=== PATIENT | female | born 1990 | race Caucasian/White ===

== ENCOUNTER 2022-01-02 18:11 | Inpatient (IN) ==
[2022-01-02 15:43] LABS: Basophils % 0.3 %; Eosinophils # 0.1 K/mcL (0.0-0.6); Hematocrit 34.1 % (35.3-44.9); Hemoglobin 11.3 g/dL (11.5-15.4); Immature Granulocytes % 0.1 % (0-4); Lymphocytes # 1.7 K/mcL (0.6-4.6); Lymphocytes % 25.8 %; Mean Corpuscular HGB Conc 33.1 g/dL (31.6-35.5); Mean Corpuscular Hemoglobin 27.9 pg (28.0-33.3); Mean Corpuscular Volume 84.2 fL (83.0-100.0); Mean Platelet Volume 12.1 fL (9.4-12.4); Monocytes # 0.4 K/mcL (0.0-1.3); Monocytes % 6.3 %; Neutrophils # 4.5 K/mcL (1.6-8.9); Platelet Count 254 K/mcL (140-400); Red Blood Count 4.05 M/mcL (3.82-4.97); Red Cell Distribution Width 14.3 % (11.5-14.5); Segmented Neutrophils % 66.5 %; White Blood Count 6.7 K/mcL (4.3-11.1)
[2022-01-02 15:46] LABS: Alanine Aminotransferase 8 Units/L (7-52); Aspartate Amino Transferase 15 Units/L (13-39); BUN/Creatinine Ratio 14 (6-26); Blood Urea Nitrogen 9 mg/dL (6-20); Lactate Dehydrogenase 143 Units/L (140-271); eGFR For African Americans > 60 (> 60); eGFR For Non-African Americans > 60 (> 60)
[2022-01-02 15:57] LABS: Bacteria,Urine Few per hpf (None-Few); Bilirubin,Urine Negative (Negative); Blood,Urine Negative (Negative); Clarity,Urine Turbid (Clear); Color,Urine Yellow (Yellow); Glucose,Urine (UA) Normal (Normal); Hyaline Casts,Urine Few per lpf (None Seen); Ketones,Urine Negative (Negative); Leukocyte Esterase,Urine Large (Negative); Mucus,Urine Many per lpf (None-Few); Nitrite,Urine Negative (Negative); PH,Urine 5.5 pH Units (5.0-8.0); Protein,Urine 100 mg/dL (Neg-Trace); Renal Epithelial Cells,Urine Few per hpf (None-Few); Specific Gravity,Urine > 1.030 (1.010-1.025); Squamous Epithelial Cell,Urine Moderate per hpf (None-Few); Transitional Epi Cells,Urine Few per hpf (None-Few); Urobilinogen,Urine Normal (Normal)
[2022-01-02 16:22] LABS: Creatinine,Urine 349 mg/dL; Protein/Creatinine Ratio,Urine 0.22 mg/mg (0.00-0.20)
[2022-01-02] MEDS ORDERED: *HR* Nalbuphine 10 MG/ML AMPUL IV PRN (18:18)
[2022-01-02] MEDS ORDERED: Azithromycin 500 MG in 0.9 % Sodium Chloride 250 ML IVPB PRN (18:18)
[2022-01-02] MEDS ORDERED: Naloxone 0.4 MG/ML INJ IVP PRN (18:18)
[2022-01-02] MEDS ORDERED: Metoclopramide 10 MG/2 ML VIAL IVP PRN (18:18)
[2022-01-02] MEDS ORDERED: Famotidine 20 MG/2 ML VIAL IVP PRN (18:18)
[2022-01-02] MEDS ORDERED: Ringers Solution, Lactated 1,000 ML ONE (18:22)
[2022-01-02] MEDS ORDERED: miSOPROStoL 25 MCG TABLET PO SCH (18:30)
[2022-01-02] MEDS ORDERED: Penicillin G Potassium 5,000,000 UNIT in 0.9 % Sodium Chloride Mini Bag 100 ML IVPB ONE (18:30)
[2022-01-02] MEDS: Magnesium Sulf 20 gm/SW 500mL 20 GM/500 ML IV.SOLN IVC SCH (19:02)
[2022-01-02 19:08] LABS: Amphetamine Screen,Urine Negative ng/mL (Cutoff=1000); Barbiturate Screen,Urine Negative ng/mL (Cutoff=200); Benzodiazepines Screen,Urine Negative ng/mL (Cutoff=200); Cannabinoid Screen,Urine Positive ng/mL (Cutoff = 50); Cocaine Screen,Urine Negative ng/mL (Cutoff= 300); Opiate Screen,Urine Negative ng/mL (Cutoff=300); Phencyclidine Screen,Urine Negative ng/mL (Cutoff=25)
[2022-01-02] MEDS ORDERED: *HR* Labetalol 20 MG/4 ML SYRINGE IVP ONE ×2 (19:17→20:00)
[2022-01-02 19:23] LABS: Influenza A PCR Negative (Negative); Influenza B PCR Negative (Negative); Resp. Syncytial Virus PCR Negative (Negative)
[2022-01-02 19:25] LABS: SARS-CoV-2 by PCR (In House) Negative (Negative)
[2022-01-02] MEDS ORDERED: EPHEDrine 50 MG/ML VIAL IVP PRN (20:55)
[2022-01-02] MEDS ORDERED: *HR* FentaNYL (PF) 100 MCG/2 ML VIAL EP ONE (20:55)
[2022-01-02] MEDS ORDERED: Ropivacaine/PF 0.2% 20 ML VIAL EP ONE (20:55)
[2022-01-02] MEDS ORDERED: Epidural Premix (fent/bupiv) 110 ML EP ONE (20:56)
[2022-01-02] MEDS ORDERED: Epidural Premix (fent/bupiv) 110 ML EP SCH (21:00)
[2022-01-02] MEDS ORDERED: Ringers Solution, Lactated 1,000 ML IVC SCH (21:30)
[2022-01-02] MEDS: Ondansetron 4 MG/2 ML VIAL IVP PRN (21:50)
[2022-01-02] MEDS ORDERED: Calcium Gluconate 1,000 MG/10 ML VIAL IVP PRN (22:04)
[2022-01-02] MEDS: Penicillin G Potassium 2,500,000 UNIT/105 ML MLS IVPB SCH (23:02)
[2022-01-03] MEDS ORDERED: Oxytocin 20 units/ LR 1000 mL 20 UNIT/1,000 ML BAG IVC SCH ×2 (01:00→10:34)
[2022-01-03] MEDS: Penicillin G Potassium 2,500,000 UNIT/105 ML MLS IVPB SCH ×2 (02:58→06:58)
[2022-01-03] MEDS: Magnesium Sulf 20 gm/SW 500mL 20 GM/500 ML IV.SOLN IVC SCH ×3 (04:57→21:37)
[2022-01-03] MEDS: Ondansetron 4 MG/2 ML VIAL IVP PRN (05:20)
[2022-01-03] MEDS ORDERED: Ropivacaine/PF 0.2% 20 ML VIAL ONE (08:30)
[2022-01-03] MEDS ORDERED: 0.9 % Sodium Chloride 500 ML ONE (08:35)
[2022-01-03] MEDS ORDERED: Lidocaine/EPI 1:200k 2% PF 20 ML VIAL ONE (09:02)
[2022-01-03] MEDS ORDERED: EPHEDrine 50 MG/ML VIAL ONE (09:26)
[2022-01-03] MEDS ORDERED: Ondansetron 4 MG/2 ML VIAL ONE (09:26)
[2022-01-03] MEDS ORDERED: *HR* Morphine Sulfate/PF 10 MG/10 ML AMPUL ONE (09:29)
[2022-01-03] MEDS ORDERED: Ketorolac 30 MG/ML VIAL ONE (09:31)
[2022-01-03] MEDS ORDERED: Acetaminophen IV 1,000 MG/100 ML BAG IVPB ONE (09:31)
[2022-01-03] MEDS ORDERED: Acetaminophen IV 1,000 MG/100 ML BAG IVPB PRN (09:49)
[2022-01-03] MEDS ORDERED: Promethazine 6.25 MG in Water for inj. (sterile) 20 ML IVPB PRN (09:49)
[2022-01-03] MEDS ORDERED: *HR* OxyCODONE Immed Rel 5 MG TABLET PO PRN ×2 (09:49→10:34)
[2022-01-03] MEDS ORDERED: Ringers Solution, Lactated 1,000 ML IVC SCH (10:34)
[2022-01-03] MEDS ORDERED: Metoclopramide 10 MG/2 ML VIAL IVP PRN (10:34)
[2022-01-03] MEDS ORDERED: Rho Immune Globulin 1,500 UNIT SYRINGE IM ONE (10:34)
[2022-01-03] MEDS ORDERED: Ondansetron 4 MG/2 ML VIAL IVP PRN (10:34)
[2022-01-03] MEDS ORDERED: Calcium Gluconate 1,000 MG/10 ML VIAL IVP PRN (10:37)
[2022-01-03] MEDS: metroNIDAZOLE 500 MG TABLET PO SCH ×2 (16:17→21:38)
[2022-01-03] MEDS: cephALEXin 500 MG CAPSULE PO SCH ×2 (16:17→21:38)
[2022-01-03] MEDS: Acetaminophen 325 MG TABLET PO SCH ×2 (16:18→23:19)
[2022-01-03] MEDS: Ibuprofen 600 MG TABLET PO SCH (20:14)
[2022-01-03] MEDS: *HR* Enoxaparin 60 MG/0.6 ML SYRINGE SQ SCH (21:38)
[2022-01-04] MEDS: Ibuprofen 600 MG TABLET PO SCH ×4 (02:14→20:29)
[2022-01-04 04:19] LABS: Basophils % 0.2 %; Eosinophils # 0.1 K/mcL (0.0-0.6); Eosinophils % 0.6 %; Hematocrit 34.6 % (35.3-44.9); Hemoglobin 11.3 g/dL (11.5-15.4); Immature Granulocytes % 0.2 % (0-4); Lymphocytes # 1.4 K/mcL (0.6-4.6); Lymphocytes % 14.3 %; Mean Corpuscular HGB Conc 32.7 g/dL (31.6-35.5); Mean Corpuscular Hemoglobin 27.6 pg (28.0-33.3); Mean Corpuscular Volume 84.6 fL (83.0-100.0); Monocytes # 0.5 K/mcL (0.0-1.3); Monocytes % 5.3 %; Neutrophils # 7.6 K/mcL (1.6-8.9); Platelet Count 277 K/mcL (140-400); Red Blood Count 4.09 M/mcL (3.82-4.97); Red Cell Distribution Width 14.6 % (11.5-14.5); Segmented Neutrophils % 79.4 %; White Blood Count 9.6 K/mcL (4.3-11.1)
[2022-01-04] MEDS: Acetaminophen 325 MG TABLET PO SCH ×3 (06:20→18:56)
[2022-01-04] MEDS: Magnesium Sulf 20 gm/SW 500mL 20 GM/500 ML IV.SOLN IVC SCH (08:18)
[2022-01-04] MEDS ORDERED: Prenatal Vit/FA 1 EACH TABLET PO SCH (09:00)
[2022-01-04] MEDS: cephALEXin 500 MG CAPSULE PO SCH ×3 (09:08→20:28)
[2022-01-04] MEDS: Prenatal Vit/FA 1 EACH TABLET PO SCH (09:08)
[2022-01-04] MEDS: metroNIDAZOLE 500 MG TABLET PO SCH ×3 (09:08→20:29)
[2022-01-04] MEDS: *HR* Enoxaparin 60 MG/0.6 ML SYRINGE SQ SCH ×2 (09:08→20:29)
[2022-01-04] MEDS: Simethicone 80 MG TAB.CHEW PO PRN (13:31)
[2022-01-05] MEDS: Acetaminophen 325 MG TABLET PO SCH ×3 (00:12→15:18)
[2022-01-05] MEDS: Simethicone 80 MG TAB.CHEW PO PRN (01:35)
[2022-01-05] MEDS: Ibuprofen 600 MG TABLET PO SCH ×3 (04:42→16:51)
[2022-01-05] MEDS: Prenatal Vit/FA 1 EACH TABLET PO SCH (08:24)
[2022-01-05] MEDS: metroNIDAZOLE 500 MG TABLET PO SCH (08:24)
[2022-01-05] MEDS: cephALEXin 500 MG CAPSULE PO SCH (08:24)
[2022-01-05] MEDS: *HR* Enoxaparin 60 MG/0.6 ML SYRINGE SQ SCH (08:24)
[2022-01-05 12:46] VITALS: O2SAT 99
[2022-01-05 16:01] VITALS: BP 149/90; PULSE 88; TEMP 98.5
== END 2022-01-05 19:00 | disposition home or self-care (01) | DRG 788 ==
LOC: 1NENULAB → 1NENUOBS 01-03 12:59
PROVIDERS: ADMIT Obstetrics & Gynecology; ATTEND Obstetrics & Gynecology